=== PATIENT | male | born 1955 | race Two or more races ===

== ENCOUNTER → 2018-04-29 | Outpatient (CLI) | payer BC ==
[~2018-04-29] MED LIST: ACET-1600 PO; AMLO10TA6 PO; AMLO5TAB7 PO; ASPI-496 PO; LANS15CA PO; OMNIPAQUE 350 MG/ML, 100ML BOTTLE ONE; OXYC-302 PO; SULF1TAB24 PO
== END | disposition home or self-care (01) ==
LOC: PETCFH 07:46
PROVIDERS: ATTEND Urology
DX: D17.79 Benign lipomatous neoplasm of other sites (principal); C61 Malignant neoplasm of prostate
CPT/HCPCS: 74177; 78306; A9503; Q9967

== ENCOUNTER → 2018-05-04 | Outpatient (CLI) | payer BC ==
[~2018-05-04] MED LIST changes: -OMNIPAQUE 350 MG/ML, 100ML BOTTLE ONE; -OXYC-302 PO
[2018-05-04 15:13] LABS: BASOPHILS # (AUTO) 0.05 x10^3/uL (0-0.1); BASOPHILS % (AUTO) 1 % (0-1); EOSINOPHILS # (AUTO) 0.36 x10^3/uL (0-0.4); EOSINOPHILS % (AUTO) 5 % (1-7); LYMPHOCYTES # (AUTO) 2.45 x10^3/uL (1-3.4); LYMPHOCYTES % (AUTO) 31 % (22-44); MD NO; MEAN CORPUSCULAR HGB CONC 33.1 g/dL (33.2-36.2); MEAN CORPUSCULAR VOLUME 90.6 fL (81-97); MEAN PLATELET VOLUME 7.8 fL (7.4-10.4); MONOCYTES # (AUTO) 0.64 x10^3/uL (0.2-0.8); MONOCYTES % (AUTO) 8 % (2-9); NEUTROPHILS # (AUTO) 4.47 x10^3/uL (1.8-6.8); NEUTROPHILS % (AUTO) 56 % (42-75); PLATELET COUNT 265 x10^3/uL (130-400); RED BLOOD COUNT 4.83 x10^6/uL (4.38-5.82); RED CELL DISTRIBUTION WIDTH 14.8 % (9.4-14.8)
[2018-05-04 15:24] LABS: ALANINE AMINOTRANSFERASE 26 U/L (12-78); ALBUMIN 3.9 g/dL (3.4-5.0); ANION GAP 6 mmol/L (5-15); CALCIUM 8.8 mg/dL (8.5-10.1); CHLORIDE 107 mmol/L (98-107); CREATININE 1.03 mg/dL (0.7-1.3)
[2018-05-04 15:27] LABS: ALKALINE PHOSPHATASE 75 U/L (45-117); BILIRUBIN,TOTAL 0.4 mg/dL (0.2-1.0); TOTAL PROTEIN 7.1 g/dL (6.4-8.2)
[2018-05-04 15:41] LABS: MICROSCOPIC NOT IND
== END | disposition home or self-care (01) ==
LOC: STAR 14:11
PROVIDERS: ATTEND Urology
DX: Z01.818 Encounter for other preprocedural examination (principal); C61 Malignant neoplasm of prostate
CPT/HCPCS: 36415; 80053; 81003; 85025; 87086; 93005

== ENCOUNTER 2018-05-10 05:14 | Inpatient (IN) | payer BC ==
[~2018-05-10] VITALS: Ht 165.1 cm; Wt 90.0 kg
[2018-05-10] MEDS ORDERED: LACTATED RINGERS 1,000 ML IV SCH (06:13)
[2018-05-10 06:34] VITALS: BP 138/83
[2018-05-10] MEDS ORDERED: BUPIVACAINE 0.25% ONE (06:43)
[2018-05-10] MEDS ORDERED: INDIGO CARMINE 0.8%, 5ML ONE (06:43)
[2018-05-10] MEDS ORDERED: EPINEPHRINE 1 MG/ML, 1ML ONE (06:44)
[2018-05-10] MEDS ORDERED: THROMBIN 5,000 UNIT VIAL TP ONE (06:44)
[2018-05-10] MEDS ORDERED: MIDAZOLAM 1 MG/ML, 2ML ONE (07:11)
[2018-05-10] MEDS ORDERED: FENTANYL PF 250 MCG/5ML ONE (07:11)
[2018-05-10] MEDS ORDERED: PROPOFOL 10 MG/ML, 20ML ONE (07:12)
[2018-05-10] MEDS ORDERED: ROCURONIUM 10MG/ML,5ML ONE (07:13)
[2018-05-10] MEDS ORDERED: LIDOCAINE-MPF 2% ,5ML ONE (07:13)
[2018-05-10] MEDS ORDERED: SUCCINYLCHOLINE 20 MG/ML, 10ML ONE (07:14)
[2018-05-10] MEDS ORDERED: DEXAMETHASONE 4 MG/ML, 1ML ONE (07:15)
[2018-05-10] MEDS ORDERED: CEFAZOLIN 1,000 MG ONE (07:15)
[2018-05-10] MEDS ORDERED: GLYCOPYRROLATE 0.2MG/1ML, 5ML ONE (07:26)
[2018-05-10] MEDS ORDERED: METOCLOPRAMIDE 5 MG/ML, 2ML ONE (07:26)
[2018-05-10] MEDS ORDERED: PHENYLEPHRINE 10 MG/ML ONE (07:26)
[2018-05-10] MEDS ORDERED: NEOSTIGMINE 1 MG/ML, 10ML ONE (07:26)
[2018-05-10] MEDS ORDERED: ALBUMIN HUMAN 25% 12.5 GM/50 ML ONE (07:26)
[2018-05-10] MEDS ORDERED: ACETAMINOPHEN 500 MG TABLET PO ONE (07:30)
[2018-05-10] MEDS ORDERED: GABAPENTIN 300 MG CAPSULE PO ONE (07:30)
[2018-05-10] MEDS ORDERED: DIAZEPAM 5 MG/ML, 2ML IVPush PRN (08:30)
[2018-05-10] MEDS ORDERED: EPHEDRINE 50 MG/ML, 1ML IVPush PRN (08:30)
[2018-05-10] MEDS ORDERED: DIPHENHYDRAMINE 50 MG/ML, 1ML IVPush PRN (08:30)
[2018-05-10] MEDS ORDERED: hydrALAzine 20 MG/ML, 1ML IV PRN (08:30)
[2018-05-10] MEDS ORDERED: OXYcodone 5 MG/5 ML ORAL.SOL UDC PO PRN (08:30)
[2018-05-10] MEDS ORDERED: MEPERIDINE/PF 25MG/0.5ML IVPush PRN (08:30)
[2018-05-10] MEDS ORDERED: HYDROmorphone 1 MG/ML, 1ML IV PRN (08:30)
[2018-05-10] MEDS ORDERED: PROCHLORPERAZINE 5 MG/ML, 2ML IV PRN (08:30)
[2018-05-10] MEDS ORDERED: LABETALOL 5MG/ML, 20ML IV PRN (08:30)
[2018-05-10] MEDS ORDERED: OPIUM/BELLADONNA SUPP.RECT 16.2-30 MG ONE (10:48)
[2018-05-10] MEDS ORDERED: OXYcodone 5 MG/5 ML ORAL.SOL UDC ONE (11:55)
[2018-05-10] MEDS ORDERED: FENTANYL PF 100 MCG/2ML ONE (11:55)
[2018-05-10] MEDS: FENTANYL PF 100 MCG/2ML IV PRN ×2 (11:58→12:15)
[2018-05-10] MEDS ORDERED: OPIUM/BELLADONNA SUPP.RECT 16.2-30 MG PR PRN (15:00)
[2018-05-10] MEDS: ACETAMINOPHEN 500 MG TABLET PO SCH ×2 (15:00→19:47)
[2018-05-10] MEDS ORDERED: OXYcodone IR 5MG TABLET PO PRN (15:00)
[2018-05-10] MEDS ORDERED: ONDANSETRON 2MG/ML, 2ML IV PRN (15:00)
[2018-05-10] MEDS: D5%-0.45NACL+KCL 20MEQ 1,000 ML IV SCH ×2 (15:47→23:44)
[2018-05-10 19:48] VITALS: BP 114/71
[2018-05-11 00:19] VITALS: BP 102/69
[2018-05-11] MEDS: ACETAMINOPHEN 500 MG TABLET PO SCH ×3 (02:15→12:47)
[2018-05-11 04:16] VITALS: BP 116/72
[2018-05-11 06:16] LABS: ANION GAP 8 mmol/L (5-15); CALCIUM 8.1 mg/dL (8.5-10.1); CHLORIDE 105 mmol/L (98-107)
[2018-05-11 06:19] LABS: CREATININE 1.15 mg/dL (0.7-1.3)
[2018-05-11 07:14] VITALS: BP 115/78
[2018-05-11] MEDS ORDERED: ENOXAPARIN 40 MG/0.4 ML SQ SCH (08:00)
[2018-05-11] MEDS: D5%-0.45NACL+KCL 20MEQ 1,000 ML IV SCH (08:16)
[2018-05-11] MEDS ORDERED: OXYC-302 PO (11:20)
[2018-05-11 15:10] VITALS: BP 119/65
== END 2018-05-11 16:35 | disposition home or self-care (01) | DRG 708 ==
LOC: OUT 05:14 → 4NOR 12:46 → OUT 13:27 → DCLOUNGE 05-11 16:20
PROVIDERS: ADMIT Urology; ATTEND Urology
PROC: 07BC4ZZ Excision of Pelvis Lymphatic, Percutaneous Endoscopic Approach (ICD-10-PCS; 2018-05-10)
PROC: 8E0W4CZ Robotic Assisted Procedure of Trunk Region, Percutaneous Endoscopic Approach (ICD-10-PCS; 2018-05-10)
PROC: 0VT04ZZ Resection of Prostate, Percutaneous Endoscopic Approach (ICD-10-PCS; principal; 2018-05-10 07:30)
DX: C61 Malignant neoplasm of prostate (principal); K66.0 Peritoneal adhesions (postprocedural) (postinfection); E78.5 Hyperlipidemia, unspecified; K21.9 Gastro-esophageal reflux disease without esophagitis; N40.0 Benign prostatic hyperplasia without lower urinary tract symptoms; I10 Essential (primary) hypertension; Z88.5 Allergy status to narcotic agent; Z88.8 Allergy status to other drugs, medicaments and biological substances; Z79.899 Other long term (current) drug therapy
CPT/HCPCS: 36415; J3490; 80048; 85014; 85018; 86850; 86900; 88305; 88309; C1729; G0378; J0171; J0690; J1100; J1650; J2250; J2704; J2710; J3010; P9047; C1760; J0330; J2370; J2765; J3480; J7120

== ENCOUNTER → 2018-05-17 | Outpatient (CLI) | payer BC ==
[~2018-05-17] MED LIST changes: +AMLO-150 PO; -AMLO5TAB7 PO; +OXYC-302 PO
== END | disposition home or self-care (01) ==
LOC: RAD 11:39
PROVIDERS: ATTEND Urology
DX: N42.9 Disorder of prostate, unspecified (principal)
CPT/HCPCS: 51600; 74430

== ENCOUNTER → 2018-08-17 | Outpatient (CLI) | payer OTHER ==
[~2018-08-17] MED LIST changes: -AMLO10TA6 PO; +AMLO10TA8 PO
== END | disposition home or self-care (01) ==
LOC: CFH 15:46
PROVIDERS: ATTEND Nurse Practitioner Family
DX: M51.35 Other intervertebral disc degeneration, thoracolumbar region (principal); M48.061 Spinal stenosis, lumbar region without neurogenic claudication; M47.816 Spondylosis without myelopathy or radiculopathy, lumbar region; M12.88 Other specific arthropathies, not elsewhere classified, other specified site
CPT/HCPCS: 72148

== ENCOUNTER 2019-01-11 13:28 | Emergency (ER) | payer OTHER ==
[~2019-01-11] VITALS: Ht 167.6 cm; Wt 90.7 kg
--- NOTE | 2019-01-11 14:02 | NUR ---
PT A&OX4, RESP EVEN & UNLABORED, SPEECH CLEAR, SKIN WNL. SON IN ROOM. PT SITTING ON BED W/ ARMS RESTING OVERHEAD. C/O PT TO LT SUBSCAPULA - STARTED YESTERDAY ABOUT 0400 WHILE WORKING AT HOME [employer]. PAIN WORSE TODAY W/ SOME SOB. VICODIN 1 TAB TAKEN FOR PAIN 0800 TODAY.
[2019-01-11] MEDS ORDERED: ASPI-496 PO (14:16)
[2019-01-11] MEDS ORDERED: LORA0.5T PO (14:16)
[2019-01-11] MEDS ORDERED: ATOR40TA78 PO (14:16)
[2019-01-11] MEDS ORDERED: FLUO10TA PO (14:16)
[2019-01-11] MEDS ORDERED: LANS15CA5 PO (14:16)
[2019-01-11 14:22] LABS: BASOPHILS # (AUTO) 0.04 x10^3/uL (0-0.1); BASOPHILS % (AUTO) 0 % (0-1); EOSINOPHILS # (AUTO) 0.05 x10^3/uL (0-0.4); EOSINOPHILS % (AUTO) 1 % (1-7); LYMPHOCYTES # (AUTO) 1.23 x10^3/uL (1-3.4); LYMPHOCYTES % (AUTO) 11 % (22-44); MD NO; MEAN CORPUSCULAR HEMOGLOBIN 30.4 pg (27.5-34.5); MEAN CORPUSCULAR HGB CONC 33.1 g/dL (33.2-36.2); MEAN PLATELET VOLUME 8.1 fL (7.4-10.4); MONOCYTES # (AUTO) 0.82 x10^3/uL (0.2-0.8); MONOCYTES % (AUTO) 7 % (2-9); NEUTROPHILS # (AUTO) 9.05 x10^3/uL (1.8-6.8); NEUTROPHILS % (AUTO) 81 % (42-75); PLATELET COUNT 251 x10^3/uL (130-400); RED BLOOD COUNT 4.93 x10^6/uL (4.38-5.82); RED CELL DISTRIBUTION WIDTH 14.3 % (9.4-14.8)
[2019-01-11] MEDS ORDERED: KETOROLAC 30 MG/1 ML IVPush ONE (14:30)
[2019-01-11] MEDS ORDERED: HYDROmorphone 2 MG/ML, 1ML IV PRN (14:30)
[2019-01-11] MEDS ORDERED: SODIUM CHLORIDE FLUSH 10ML SYR IVF ONE (14:30)
[2019-01-11 14:35] LABS: ALANINE AMINOTRANSFERASE 25 U/L (12-78); ALBUMIN 4.1 g/dL (3.4-5.0); ANION GAP 6 mmol/L (5-15); CALCIUM 9.3 mg/dL (8.5-10.1); CHLORIDE 105 mmol/L (98-107); CREATININE 1.05 mg/dL (0.7-1.3)
[2019-01-11 14:39] LABS: ALKALINE PHOSPHATASE 117 U/L (45-117); BILIRUBIN,TOTAL 0.8 mg/dL (0.2-1.0); TOTAL PROTEIN 7.8 g/dL (6.4-8.2); TROPONIN I < 0.015 ng/mL (0.000-0.045)
--- NOTE | 2019-01-11 14:40 | NUR ---
U/S BS. PT REQUESTING XANAX; STATES "MY ANXIETY IS GOING UP". WILL NOTIFY ERP.
[2019-01-11] MEDS ORDERED: KETOROLAC 30 MG/1 ML ONE (14:42)
[2019-01-11] MEDS ORDERED: HYDROmorphone 1 MG/ML, 1ML VIAL ONE (14:43)
[2019-01-11] MEDS ORDERED: OMNIPAQUE 350 MG/ML, 100ML BOTTLE ONE (15:28)
--- NOTE | 2019-01-11 15:53 | NUR ---
RESTING QUIETLY ON BED, USING OWN CELL PHONE, SIDE RAIL UP X2, CALL LIGHT W/IN REACH.
--- NOTE | 2019-01-11 16:09 | NUR ---
DR ALDANA BS TALKING W/ PT.
[2019-01-11 16:50] VITALS: BP 124/68
--- NOTE | 2019-01-11 16:52 | NUR ---
AMBULATORY TO [facility], USING OWN CANE, GAIT STEADY. DENIES LIGHTHEADEDNESS, DIZZINESS.
== END 2019-01-11 16:54 | disposition home or self-care (01) ==
LOC: ED 14:16
DX: M54.6 Pain in thoracic spine (principal); I10 Essential (primary) hypertension; K21.9 Gastro-esophageal reflux disease without esophagitis; M79.89 Other specified soft tissue disorders; R60.0 Localized edema
CPT/HCPCS: 36415; 71045; 71275; 80053; 83605; 83880; 84484; 85025; 93005; 93970; 96374; 96375; 99284; J1170; J1885; Q9967